=== PATIENT | male | born 1965 | race Caucasian/White ===

== ENCOUNTER 2021-07-29 19:37 | Emergency (ER) | payer SELFPAY ==
[~2021-07-29] VITALS: Ht 175.3 cm; Wt 79.5 kg
[2021-07-29 20:04] LABS: BASO # 0.1 x10^3/uL (0.0-0.2); BASO % 1 % (0-3); EOS # 0.2 x10^3/uL (0.0-0.7); EOS % 4 % (0-3); HEMATOCRIT 38.9 % (39.0-53.0); HEMOGLOBIN 13.5 g/dL (13.0-17.5); LYMPH # 1.8 x10^3/uL (1.0-4.8); LYMPH % 29 % (24-48); MEAN CORPUSCULAR HEMOGLOBIN 34 pg (25-35); MEAN CORPUSCULAR HGB CONC 35 g/dL (31-37); MEAN CORPUSCULAR VOLUME 96 fL (79-100); MONO # 0.6 x10^3/uL (0.0-1.1); MONO % 11 % (0-9); NEUT # 3.4 x10^3/uL (1.8-7.7); NEUT % 56 % (31-73); PLATELET COUNT 160 x10^3/uL (140-400); RED BLOOD COUNT 4.04 x10^6/uL (4.30-5.70); WHITE BLOOD COUNT 6.1 x10^3/uL (4.0-11.0)
--- NOTE | 2021-07-29 20:13 | PHYS DOC ---
Past Medical History Additional Past Medical Histor: SOME KIND OF CARDIAC HISTORY STATES HE NEEDS SURGERY Past Surgical History: Other Additional Past Surgical Histo: UNKNOWN Smoking Status: Current Every Day Smoker Alcohol Use: Occasionally Drug Use: Amphetamine Social History Narrative: PATIENT STATES HE SMOKED METH TODAY General Adult EDM: Chief Complaint: CHEST PAIN HPI: HPI: Patient is a 56 year old male who was brought here by EMS from [facility] because he was complaining of chest pain while he was being arrested for shoplifting. Police stated that they found on his body large amount of methamphetamine as well. Patient says he has history of loud heart murmur that might need to have surgery. Patient also has history of stroke. Patient also has history of low back surgery. Patient denies any abdominal pain, no nausea vomiting, no headache, no neck pain Review of Systems: Review of Systems: Constitutional: Denies fever or chills. [] Eyes: Denies change in visual acuity. [] HENT: Denies nasal congestion or sore throat. [] Respiratory: Denies cough or shortness of breath. [] Cardiovascular: Postive for Chest pain, no edema. GI: Denies abdominal pain, nausea, vomiting, bloody stools or diarrhea. [] : Denies dysuria. [] Musculoskeletal: Denies back pain or joint pain. [] Integument: Denies rash. [] Neurologic: Denies headache, focal weakness or sensory changes. [] Endocrine: Denies polyuria or polydipsia. [] Lymphatic: Denies swollen glands. [] Psychiatric: Denies depression or anxiety. [] Heart Score: C/O Chest Pain: Yes HEART Score for Chest Pain: HEART Score for Chest Pain Response (Comments) Value History Slighlty/Non-Suspicious 0 ECG Normal 0 Age >45 - < 65 1 Risk Factors 1 or 2 Risk Factors 1 Troponin < Normal Limit 0 Total 2 Risk Factors: Risk Factors: DM, Current or recent (<one month) smoker, HTN, HLP, family history of CAD, obesity. Risk Scores: Score 0 - 3: 2.5% MACE over next 6 weeks - Discharge Home Score 4 - 6: 20.3% MACE over next 6 weeks - Admit for Clinical Observation Score 7 - 10: 72.7% MACE over next 6 weeks - Early Invasive Strategies Physical Exam: PE: Constitutional: Well developed, well nourished, no acute distress, non-toxic appearance. [] HENT: Normocephalic, atraumatic, bilateral external ears normal, oropharynx moist, no oral exudates, nose normal. [] Eyes: PERRLA, EOMI, conjunctiva normal, no discharge. [] Neck: Normal range of motion, no tenderness, supple, no stridor. [] Cardiovascular:Heart rate regular rhythm, LOUD SYSTOLIC murmur [] Lungs & Thorax: Bilateral breath sounds clear to auscultation [] Abdomen: Bowel sounds normal, soft, no tenderness, no masses, no pulsatile cole s. [] Skin: Warm, dry, no erythema, no rash. [] Back: No tenderness, no CVA tenderness. [] Extremities: No tenderness, no cyanosis, no clubbing, ROM intact, no edema. [] Neurologic: Alert and oriented X 3, normal motor function, normal sensory function, no focal deficits noted. [] Psychologic: Affect normal, judgement normal, mood normal. [] Current Patient Data: Labs: Laboratory Tests Test 07/29/21 19:57 07/29/21 22:00 White Blood Count 6.1 x10^3/uL Red Blood Count 4.04 x10^6/uL Hemoglobin 13.5 g/dL Hematocrit 38.9 % Mean Corpuscular Volume 96 fL Mean Corpuscular Hemoglobin 34 pg Mean Corpuscular Hemoglobin Concent 35 g/dL Red Cell Distribution Width 13.0 % Platelet Count 160 x10^3/uL Neutrophils (%) (Auto) 56 % Lymphocytes (%) (Auto) 29 % Monocytes (%) (Auto) 11 % Eosinophils (%) (Auto) 4 % Basophils (%) (Auto) 1 % Neutrophils # (Auto) 3.4 x10^3/uL Lymphocytes # (Auto) 1.8 x10^3/uL Monocytes # (Auto) 0.6 x10^3/uL Eosinophils # (Auto) 0.2 x10^3/uL Basophils # (Auto) 0.1 x10^3/uL Sodium Level 143 mmol/L Potassium Level 3.6 mmol/L Chloride Level 106 mmol/L Carbon Dioxide Level 29 mmol/L Anion Gap 8 Blood Urea Nitrogen 14 mg/dL Creatinine 0.9 mg/dL Estimated GFR (Cockcroft-Gault) 87.3 BUN/Creatinine Ratio 16 Glucose Level 92 mg/dL Calcium Level 8.5 mg/dL Magnesium Level 2.0 mg/dL Total Bilirubin 0.5 mg/dL Aspartate Amino Transf (AST/SGOT) 29 U/L Alanine Aminotransferase (ALT/SGPT) 33 U/L Alkaline Phosphatase 45 U/L Troponin I High Sensitivity 18 ng/L 21 ng/L MA-Ekg-Y-Type Natriuretic Peptide 81 pg/mL Total Protein 6.6 g/dL Albumin 3.7 g/dL Albumin/Globulin Ratio 1.3 Vital Signs: Vital Signs Date Time Temp Pulse Resp B/P (MAP) Pulse Ox O2 Delivery O2 Flow Rate FiO2 07/29/21 19:40 98.7 62 17 137/71 (93 93 Room Air 98.7 EKG: EKG: EKG was done at 1941, heart rate of 64 bpm, sinus rhythm, no ST segment elevation, left axis deviation, right bundle branch block Radiology/Procedures: Radiology/Procedures: [][facility] [address] [place] [address] IMAGING REPORT Signed PATIENT: HARRY ENGLE ACCOUNT: [id number] : 1965 LOCATION: ER AGE: 56 SEX: M EXAM STATUS: REG ER ORD. PHYSICIAN: YAZ AYON DO REASON: chest pain PROCEDURE: PORTABLE CHEST 1V Single view chest dated 07/29/2021 8:19 PM: COMPARISON: None Clinical Indication: Chest pain. Findings: Single upright portable exam of the chest was performed. Heart and mediastinal contours within normal limits. Lungs are clear. No consolidation or pleural effusion. No pneumothorax. Prominent perihilar linear markings, nonspecific. IMPRESSION: No acute radiographic abnormality. Electronically signed by: Justin Maciel MD (07/29/2021 8:20 PM) [facility] [place] DICTATED and SIGNED BY: JUSTIN MACIEL MD DATE: 07/29/212018 Course & Med Decision Making: Course & Med Decision Making Pertinent Labs and Imaging studies reviewed. (See chart for details) Patient is is a 56-year-old male who was brought here by EMS after he was a rrested for shoplifting. Patient complained of chest pain. EKG cardiac exam came back normal so far, troponin after 2 hours did not show any significant elevation. Patient will be discharged from the ED into police custody. Dora Disclaimer: Dora Disclaimer: This electronic medical record was generated, in whole or in part, using a voice recognition dictation system. Departure Departure Impression: Primary Impression: Chest pain Condition: RELEASED IN CUSTODY Patient Instructions: Chest Pain (Nonspecific) Additional Instructions: Follow up with your family doctor as needed. YAZ AYON DO July 29, 2021 20:13
[2021-07-29 20:17] LABS: CALCIUM 8.5 mg/dL (8.5-10.1); CREATININE 0.9 mg/dL (0.7-1.3); GFR 87.3; POTASSIUM 3.6 mmol/L (3.5-5.1)
--- NOTE | 2021-07-29 20:22 | RAD ---
Single view chest dated 07/29/2021 8:19 PM: COMPARISON: None Clinical Indication: Chest pain. Findings: Single upright portable exam of the chest was performed. Heart and mediastinal contours within normal limits. Lungs are clear. No consolidation or pleural effusion. No pneumothorax. Prominent perihilar linear markings, nonspecific. IMPRESSION: No acute radiographic abnormality. Electronically signed by: Justin Maciel MD (07/29/2021 8:20 PM) SOM
[2021-07-29 20:23] LABS: ALBUMIN 3.7 g/dL (3.4-5.0); ALBUMIN/GLOBULIN RATIO 1.3 (1.0-1.7); TOTAL BILIRUBIN 0.5 mg/dL (0.2-1.0); TOTAL PROTEIN 6.6 g/dL (6.4-8.2)
[2021-07-29 22:28] VITALS: BP 125/73
--- NOTE | 2021-07-30 08:07 | EKG ---
[facility] [address] [place] [address] Test Date: 2021-07-29 Test Time: 19:39:35 Pat Name: HARRY ENGLE Department: Room: Gender: M [employer] Supervisor: : 1965 Requested By: YAZ AYON Order Number: [id number] Reading MD: Jason Solano MD Measurements Intervals [place] Rate: 64 P: -2 HI: 206 QRS: -26 QRSD: 136 T: 5 QT: 444 QTc: 463 Interpretive Statements SINUS RHYTHM RBBB Electronically Signed On 08-02-2021 9:03:40 CDT by Jason Solano MD
== END 2021-07-29 22:55 | disposition home or self-care (01) ==
LOC: ER 19:37
DX: R07.89 Other chest pain (principal); F17.200 Nicotine dependence, unspecified, uncomplicated; Z86.73 Personal history of transient ischemic attack (TIA), and cerebral infarction without residual deficits
CPT/HCPCS: 36415; 71045; 80053; 83735; 83880; 84484; 85025; 93005; 99285-25